=== PATIENT | female | born 2000 | race Caucasian/White ===

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

== ENCOUNTER 2020-04-12 12:25 | Emergency (ER) | payer OTHER, SELFPAY ==
[2020-04-12 13:12] VITALS: BP 138/87; PULSE 78; RESP 19; TEMP 37; O2SAT 98; BMI 37.0
--- NOTE | 2020-04-12 13:26 | HMH.EDUTC ---
[facility] [place] Disposition Clinical Impression: Encounter for laboratory testing for COVID-19 virus, Viral syndrome Disposition: Home, Self-Care Condition on Discharge: Good Instructions: DI for COVID-19 (Suspected or Confirmed ), COVID-19: Testing and Tracing, Preventing the Spread of Coronavirus Discharge Instructions, Nausea and Vomiting-Adult, Ondansetron Additional Instructions: ? Avoid fruit juices, as these do not replace minerals and can actually increase diarrhea. ? Children and adults can use sports drinks to replenish electrolytes. Younger children and infants should use products formulated for children, like oral rehydration solutions. ? Eat food in small amounts and let your stomach recover. ? Get lots of rest. You may feel tired or weak. ? No greasy or fried foods for the next 24-48 hours BRAT diet Bananas Rice Apples and [place] ? Make sure to drink plenty of liquids ? Return if needed ? Straight to ER if any life threatening symptoms ? Zofran as prescribed ? Follow up with family doctor in the next 48-72 hours if no improvement or any worsening of symptoms *Monitor Temp, Over the counter Motrin or Tylenol as directed/as needed Tylenol every 4 hours and Motrin every 6 hours (as long as your family doctor has told you that you can take it) for fever or pain. and straight to ER if unable to lower temp less than 101.0 after medication given *Warm salt water gargles may help to soothe the throat *Throat Lozenges *Warm fluids like tea with honey may help to soothe the throat *Sleep elevated *Humidifier/Vaporizer Follow up IMMEDIATELY for new or worsening symptoms or no Noticeable improvement over the next 48-72 hours. 911 for difficulty breathing or swallowing You were tested for today for COVID19 your test result should be back in the next 24-48 hours, you may call to the [facility] to see if your test results are back in the next 48 hours [phone] [facility] hours are 9am-9pm You was given a handout with instructions for Self Quarantine and Self isolation for while you wait on test results and what to do if they are positive If you are positive the Health Dept will be contacting you also Prescriptions: Ondansetron [Zofran 4mg ODT] 4 mg PO TIDP PRN #10 tab PRN Reason: Nausea Transmission Status: Pending to [id number] Referrals: Solitario Ly MD [Primary Care Provider] - As needed Forms: Work/School Release Time of Disposition: 13:33 Medical Decision Making - Chetan Inquiry Pt receiving controlled substance: No Chetan was queried for this patient: No Vital Signs: 04/12/20 13:12 Temperature 98.6 F Temperature Source Oral Pulse Rate [Right Brachial] 78 Respiratory Rate 19 Blood Pressure [Right Arm] 138/87 Blood Pressure Mean [Right Arm] 104 Blood Pressure Source [Right Arm] Automatic Cuff Blood Pressure Position [Right Arm] Sitting 02 Sat by Pulse Oximetry 98 Oxygen Delivery Method Room Air Orders (Tests/Meds): ORDERS Category Date Time Status Covid-19 Nasal PCR ([facility]) Routine Lab 04/12/20 12:54 Received [facility] [place] HPI - General Stated complaint: covid symtoms Time Seen by Provider: 04/12/20 13:26 Mode of Arrival: Ambulatory Source of Information: Patient Limitations: No Limitations Description of Symptoms (Recalled from Triage Doc. by RN): PATIENT C/O NO TASTE/SMELL, HEADACHE, FEVER, VOMITING, BODY ACHES, SWEATS, AND VOMITING X 2 DAYS HEENT Symptoms (Recalled from RN notes): No Resp Symptoms (Recalled from RN notes): No Skin Symptoms (Recalled from RN notes): No MS Symptoms (Recalled from RN notes): No Functional Status (Recalled from RN notes): WNL - History of Present Illness Provider Complaint: Patient state that she has not felt well for several days States that yesterday she loss her sense of taste and smell. States that she has been having body aches, chills and fever State that she also took the COVID vaccine yesterday States that she was having symptoms prior to the Vaccine and
[2020-04-12 13:35] VITALS: BP 138/87; PULSE 78; RESP 19; TEMP 37; O2SAT 98
--- NOTE | 2020-04-12 21:00 | PC.NURSE ---
PT NOTIFIED OF POSITIVE COVID RESULTS
== END 2020-04-12 13:40 | disposition home or self-care (01) ==
PROVIDERS: Emergency Provider Nurse Practitioner; PCP Family Medicine
DX: U07.1 COVID-19 (principal); F41.9 Anxiety disorder, unspecified
CPT/HCPCS: 99202; G0463; U0003

== ENCOUNTER → 2021-02-11 09:12 | Outpatient (CLI) | payer OTHER, SELFPAY ==
[2021-02-11 12:09] LABS: Coronavirus 19, PCR Not Detected (NotDetected); Influenza A, PCR Not Detected (NotDetected); Influenza B, PCR Not Detected (NotDetected)
== END ==
PROVIDERS: PCP Family Medicine; Visit Provider Internal Medicine Adolescent Medicine
DX: Z20.822 Contact with and (suspected) exposure to COVID-19 (principal)
CPT/HCPCS: C9803; U0003; U0005

== ENCOUNTER 2021-03-10 12:08 | Emergency (ER) | payer OTHER, SELFPAY ==
[2021-03-10 13:50] VITALS: BP 138/74; PULSE 94; RESP 20; TEMP 36.8; O2SAT 99; BMI 31.1
[2021-03-10 14:02] LABS: UTC Strep Screen (Rapid) Positive (Negative)
--- NOTE | 2021-03-10 14:21 | HMH.EDUTC ---
[facility] [place] Disposition Clinical Impression: Strep throat Disposition: Home, Self-Care Condition on Discharge: Good Instructions: Strep Throat, DI for Strep Throat Additional Instructions: Drink plenty of fluids. Take tylenol or ibuprofen for pain or fever. Take the medications as directed. Follow up with your regular doctor. GO TO THE ER FOR ANY WORSENING SYMPTOMS Throw your tooth brush away and get a new one. Prescriptions: Brompheniramine/Pseudoephed/Dm [Bromfed Dm Cough Syrup] 5 ml PO Q6HP PRN #240 ml PRN Reason: Cough Transmission Status: Received by [id number] Amoxicillin/Potassium Clav [Augmentin 500mg tab] 500 mg PO TID #30 tab Transmission Status: Received by [id number] Referrals: Solitario Ly MD [Primary Care Provider] - Forms: Work/School Release Time of Disposition: 14:31 Medical Decision Making - Medical Records Medical records reviewed: No: I reviewed the patient's medical records. - Chetan Inquiry Pt receiving controlled substance: No Vital Signs: 03/10/21 13:50 03/10/21 14:40 Temperature 98.3 F 98.3 F Temperature Source Oral Pulse Rate 94 H Pulse Rate [Left] 94 H Respiratory Rate 20 20 Blood Pressure 138/74 Blood Pressure [Right Arm] 138/74 Blood Pressure Mean [Right Arm] 95 02 Sat by Pulse Oximetry 99 - Lab Data Lab results reviewed: Yes: I reviewed the patient's lab results. Lab Results 03/10/21 13:55: Strep Scn Rapid Clinic Positive A [facility] [place] HPI - General Stated complaint: sore throat and headache Time Seen by Provider: 03/10/21 14:21 Mode of Arrival: Ambulatory Source of Information: Patient Limitations: No Limitations Description of Symptoms (Recalled from Triage Doc. by RN): pt c/o a sore throat, CHURCH, chills/sweats, and fever. ongoing since yesterday. HEENT Symptoms (Recalled from RN notes): Yes (sore throat and CHURCH) Resp Symptoms (Recalled from RN notes): No Skin Symptoms (Recalled from RN notes): No MS Symptoms (Recalled from RN notes): No Functional Status (Recalled from RN notes): wnl - History of Present Illness Provider Complaint: She states that she has had a sore throat, chilling and a dry cough for the past 2 days. She usually gets strep throat this time of the year and she feels like she has it now. - Related Data Previous Rx's Medication Instructions Recorded Amoxicillin/Potassium Clav 1 tab PO Q12H 10 Days #20 tab 05/13/19 [Augmentin 875-125 Tablet] predniSONE [Deltasone 10mg tablet] 10 mg PO BID 4 Days #8 tab 05/13/19 Ondansetron [Zofran 4mg ODT] 4 mg PO TIDP PRN #10 tab 04/12/20 Amoxicillin/Potassium Clav 500 mg PO TID #30 tab 03/10/21 [Augmentin 500mg tab] Brompheniramine/Pseudoephed/Dm 5 ml PO Q6HP PRN #240 ml 03/10/21 [Bromfed Dm Cough Syrup] Allergies Allergy/AdvReac Type Severity Reaction Status Date / Time lactose Allergy Verified 04/12/20 13:18 - Worker's Comp Is this a Worker's Comp case?: No [facility] History - Hepatitis A Screen Drug use history?: No High risk sexual behaviors?: No History of sexually transmitted infection?: No Currently employed?: No Childcare worker?: No Do you have indoor plumbing?: Yes Do you have electricity?: Yes Attestation statement:: This patient has been screened for Hepatitis A risk factors. I have reviewed the patient's past medical history: Yes Medical History: Reports:: Anxiety, MRSA Denies:: Cancer, Diabetes Mellitus Type 1, Diabetes Mellitus Type 2, Internal Pacemaker, Seizures Other Medical History: Reports: Sinus Problems. Denies: Blood Transfusion Reaction Other Surgeries: Yes: No Previous Surgery, Other. No: Pacemaker Amputation: No Fractures: Yes (ANKLE AND PINKY FINGER) Comment: skin lesion excision face - Social History Smoking Status: Never smoker Alcohol Intake: never Substance Use Type: denies use Occupational Status: other Housing: house Household Members: family - Psychiatric History [facility]
[2021-03-10 14:40] VITALS: BP 138/74; PULSE 94; RESP 20; TEMP 36.8
== END 2021-03-10 14:43 | disposition home or self-care (01) ==
PROVIDERS: Emergency Provider Nurse Practitioner Family; PCP Family Medicine
DX: J02.0 Streptococcal pharyngitis (principal); F41.9 Anxiety disorder, unspecified
CPT/HCPCS: 87880; 99202; G0463

== ENCOUNTER 2021-07-31 12:23 | Emergency (ER) | payer OTHER, SELFPAY ==
[2021-07-31 12:24] VITALS: BP 127/82; PULSE 94; RESP 20; TEMP 36.8; O2SAT 98; BMI 31.1
[2021-07-31 14:36] LABS: UTC Influenza A Antigen Negative (Negative)
[2021-07-31 14:37] LABS: UTC Influenza B Antigen Negative (Negative)
--- NOTE | 2021-07-31 14:43 | HMH.EDUTC ---
[facility] [place] Clinical Impression: Viral upper respiratory infection Disposition: Home, Self-Care Condition on Discharge: Good Instructions: DI for Fever (Symptom) -- Adult, Influenza, DI for Viral Upper Respiratory Infection -- Adult Additional Instructions: *Monitor Temp, Over the counter Motrin or Tylenol as directed/as needed Tylenol every 4 hours and Motrin every 6 hours (as long as your family doctor has told you that you can take it) for fever or pain. and straight to ER if unable to lower temp less than 101.0 after medication given *Warm salt water gargles may help to soothe the throat *Throat Lozenges *Warm fluids like tea with honey may help to soothe the throat *Sleep elevated *Humidifier/Vaporizer Your throat swab was sent for culture. Those results are typically sent to your primary care. Be sure to follow up in 2-3 days with your family doctor/primary care physician if no improvement so they can review those result and treat if necessary. If you don?t have a primary care doctor, I recommend you get one but in the mean time, you will have to return to a walk in clinic Follow up IMMEDIATELY for new or worsening symptoms or no Noticeable improvement over the next 48-72 hours. 911 for difficulty breathing or swallowing Referrals: Solitario Ly MD [Primary Care Provider] - As needed Forms: Work/School Release Time of Disposition: 15:15 Medical Decision Making - Chetan Inquiry Pt receiving controlled substance: No Chetan was queried for this patient: No Vital Signs: 07/31/21 12:24 Temperature 98.3 F Temperature Source Oral Pulse Rate [Right Radial] 94 H Respiratory Rate 20 Blood Pressure [Right Arm] 127/82 Blood Pressure Mean [Right Arm] 97 Blood Pressure Source [Right Arm] Automatic Cuff Blood Pressure Position [Right Arm] Sitting 02 Sat by Pulse Oximetry 98 Oxygen Delivery Method Room Air - Lab Data Lab results reviewed: Yes: I reviewed the patient's lab results. Lab Results 07/31/21 14:11: Group A Strep Rapid Negative 07/31/21 14:12: Influenza Type A Ag Negative, Influenza Type B Ag Negative Orders (Tests/Meds): ORDERS Category Date Time Status Strep Screen Confirmation Stat Micro 07/31/21 14:11 Received [facility] [place] - General Stated complaint: lightheaded, weakness, fever Time Seen by Provider: 07/31/21 14:45 Mode of Arrival: Ambulatory Source of Information: Patient, Parent(s) Limitations: No Limitations Description of Symptoms (Recalled from Triage Doc. by RN): Pt stated that last night she had a fever 102, shaky and weak, runny nose, and feels dehydrated. HEENT Symptoms (Recalled from RN notes): Yes Resp Symptoms (Recalled from RN notes): No Skin Symptoms (Recalled from RN notes): No MS Symptoms (Recalled from RN notes): No Functional Status (Recalled from RN notes): n/a - History of Present Illness Provider Complaint: Patient states that she woke up in the middle of the night with fever of 102.0 State that she was sweating and felt thirsty States that she got up took some medication and drink some water and laid back down States that she got up earlier and was still feeling feverish and achy all over and felt like she may have the flu so she called into work and came in to get tested - Related Data Allergies Allergy/AdvReac Type Severity Reaction Status Date / Time lactose Allergy Verified 07/31/21 14:17 - Worker's Comp Is this a Worker's Comp case?: No [facility] History - Hepatitis A Screen Drug use history?: No High risk sexual behaviors?: No History of sexually transmitted infection?: No Currently employed?: No Childcare worker?: No Do you have indoor plumbing?: Yes Do you have electricity?: Yes Attestation statement:: This patient has been screened for Hepatitis A risk factors. I have reviewed the patient's past medical history: Yes Medical History: Reports:: Anxiety, MRSA Denies:: Cancer, Diabetes Mellitus Type 1, Diabetes Mellitus Type 2
[2021-07-31 15:10] LABS: Strep Scrn Group A (Rapid) Negative (Negative)
[2021-07-31 15:27] VITALS: BP 127/82; PULSE 94; RESP 20; TEMP 36.8; O2SAT 98
[2021-07-31 15:34] LABS: Adenovirus,PCR Not Detected (NotDetected); Bordetella Pertussis Not Detected (NotDetected); Chlamydophila Pneumoniae, PCR Not Detected (NotDetected); Coronavirus 19, PCR Not Detected (NotDetected); Coronavirus 229E Not Detected (NotDetected); Coronavirus NL63 Not Detected (NotDetected); Coronavirus OC43 Not Detected (NotDetected); Coronovirus HKU1,PCR Not Detected (NotDetected); Human Metapneumovirus Not Detected (NotDetected); Influenza A, PCR Not Detected (NotDetected); Influenza AH1, 2009 Not Detected (NotDetected); Influenza AH1, PCR Not Detected (NotDetected); Influenza AH3,PCR Not Detected (NotDetected); Influenza B, PCR Not Detected (NotDetected); Mycoplasma Pneumoniae, PCR Not Detected (NotDetected); Parainfluenza 1, PCR Not Detected (NotDetected); Parainfluenza 2, PCR Not Detected (NotDetected); Parainfluenza 3, PCR Not Detected (NotDetected); Parainfluenza 4, PCR Not Detected (NotDetected); Respiratory Syncytial Virus Not Detected (NotDetected)
[2021-07-31 19:45] LABS: Rhinovirus/Enterovirus Detected (NotDetected)
== END 2021-07-31 15:27 | disposition home or self-care (01) ==
PROVIDERS: Emergency Provider Nurse Practitioner; PCP Family Medicine
DX: J06.9 Acute upper respiratory infection, unspecified (principal); F41.9 Anxiety disorder, unspecified
CPT/HCPCS: 87430; 87581; 87632; 87798; 87804; 99213; C9803; G0463; U0003; U0005

== ENCOUNTER 2021-10-06 16:56 | Emergency (ER) | payer OTHER, SELFPAY ==
[2021-10-06 17:05] VITALS: BP 114/81; PULSE 66; RESP 17; TEMP 36.8; O2SAT 96; BMI 29.2
--- NOTE | 2021-10-06 17:29 | HMH.EDUTC ---
[facility] [place] Clinical Impression: UTI (urinary tract infection) Qualifiers: Urinary tract infection type: site unspecified Hematuria presence: with hematuria Qualified Code(s): N39.0 - Urinary tract infection, site not specified Disposition: Home, Self-Care Condition on Discharge: Good Instructions: Urinary Tract Infection, Urine Culture, DI for Urinary Tract Infection (UTI), Phenazopyridine Additional Instructions: Drink plenty of fluids. Take tylenol or ibuprofen for pain or fever. Take the medications as directed. Follow up with your regular doctor. GO TO THE ER FOR ANY WORSENING SYMPTOMS The pyridium will make your urine turn orange, this is an expected side effect. It will stain your clothes if it comes into contact with them. We will culture the urine. That will tell what bacteria is causing your infection and which antibiotics will treat it best. Sometimes the first antibiotic we prescribe turns out to not work against different bacteria. So, make sure you follow up within 3 days if you are not getting better. Prescriptions: Ondansetron [Zofran 4mg ODT] 4 mg PO Q8HP PRN #12 tab PRN Reason: Nausea Transmission Status: Received by [id number] Sulfamethoxazole/Trimethoprim [Bactrim DS tablet] 1 each PO BID 7 Days #14 tab Transmission Status: Received by [id number] Phenazopyridine HCl [Pyridium 200mg Tablet] 200 pow PO TID #6 tab Transmission Status: Received by [id number] Referrals: Solitario Ly MD [Primary Care Provider] - Time of Disposition: 17:40 Medical Decision Making - Medical Records Medical records reviewed: No: I reviewed the patient's medical records. - Chetan Inquiry Pt receiving controlled substance: No Vital Signs: 10/06/21 17:05 10/06/21 17:43 Temperature 98.3 F 98.3 F Temperature Source Oral Pulse Rate 66 Pulse Rate [Left] 66 Respiratory Rate 17 17 Blood Pressure 114/81 Blood Pressure [Right Arm] 114/81 Blood Pressure Mean [Right Arm] 92 02 Sat by Pulse Oximetry 96 - Lab Data Lab results reviewed: Yes: I reviewed the patient's lab results. Lab Results 10/06/21 17:57: Urine Color Heidi, Urine Appearance Clear, Urine pH 5.0, Ur Specific [place] 1.020, Urine Protein 3+, Urine Glucose (UA) Trace, Urine Ketones Small, Urine Blood 3+, Urine Nitrate Positive A, Urine Bilirubin 2+ A, Urine Urobilinogen >=8, Ur Leukocyte Esterase 3+ A Orders (Tests/Meds): ORDERS Category Date Time Status Urine Culture Stat Micro 10/06/21 17:49 Results [facility] [place]PI - General Stated complaint: Possible UTI Time Seen by Provider: 10/06/21 17:29 Description of Symptoms (Recalled from Triage Doc. by RN): patient comes in for uti symptoms. patient complains of burning, and pain with urination HEENT Symptoms (Recalled from RN notes): No Resp Symptoms (Recalled from RN notes): No Skin Symptoms (Recalled from RN notes): No MS Symptoms (Recalled from RN notes): No Functional Status (Recalled from RN notes): wnl - History of Present Illness Provider Complaint: She states that for the past 2 days she has dysuria, low back pain, suprapubic discomfort and n/d. She gets UTIs kind of frequently and that is what she says she has now. - Related Data Previous Rx's Medication Instructions Recorded Ondansetron [Zofran 4mg ODT] 4 mg PO Q8HP PRN #12 tab 10/06/21 Phenazopyridine HCl [Pyridium 200 pow PO TID #6 tab 10/06/21 200mg Tablet] Sulfamethoxazole/Trimethoprim 1 each PO BID 7 Days #14 tab 10/06/21 [Bactrim DS tablet] Allergies Allergy/AdvReac Type Severity Reaction Status Date / Time lactose Allergy Verified 07/31/21 14:17 - Worker's Comp Is this a Worker's Comp case?: No [facility] History - Hepatitis A Screen Attestation statement:: This patient has been screened for Hepatitis A risk factors. I have reviewed the patient's past medical history: Yes Medical History: Reports:: Marquez Noel
[2021-10-06 17:43] VITALS: BP 114/81; PULSE 66; RESP 17; TEMP 36.8
[2021-10-06 18:00] LABS: Apearance,Urine Clear (Clear); Color,Urine Amber (Yellow); Protein,Urine 3+ (Negative)
[2021-10-06 18:01] LABS: Bilirubin,Urine 2+ (Negative); Blood, Urine 3+ (Negative); Glucose,Urine (UA) Trace (Negative); Ketones,Urine SMALL (Negative); UTC Leukocyte Esterase,Urine 3+ (Negative); UTC Nitrate,Urine Positive (Negative); Urobilinogen,Urine >=8 EU/dl (0.2)
== END 2021-10-06 17:47 | disposition home or self-care (01) ==
PROVIDERS: Emergency Provider Nurse Practitioner Family; PCP Family Medicine
DX: N39.0 Urinary tract infection, site not specified (principal); R31.9 Hematuria, unspecified
CPT/HCPCS: 81003; 87086; 99212; G0463

== ENCOUNTER 2021-10-24 13:12 | Emergency (ER) | payer OTHER, SELFPAY ==
[2021-10-24] VITALS (10 sets, daily range): BP systolic 106–128; BP diastolic 58–90; PULSE 52–94; RESP 15–18; TEMP 37.2; O2SAT 97–99; BMI 28.3
--- NOTE | 2021-10-24 13:13 | ECG_ITS ---
APPROVED REPORT Exam: Resting ECG HR:102 bpm ECG Measurements Heart Rate 102 AXES [place] 144 P 24 QRSd 85 QRS 46 QT 335 T 28 QTc 394 Conclusion SINUS TACHYCARDIA ABNORMAL RHYTHM ECG UNCONFIRMED REPORT Electronically signed by : Asad Hodgson MD 10/25/2021 21:02:34
--- NOTE | 2021-10-24 13:30 | XR_ITS ---
FINAL REPORT CLINICAL HISTORY: CHEST PAIN COMPARISON: 08/01/2017 FINDINGS: Two views of the chest were obtained. The heart size and pulmonary vascularity are within normal limits. The mediastinum is normal. No acute pulmonary abnormality is identified. There is no pneumothorax. The bony thorax is intact. IMPRESSION: No active cardiopulmonary disease. Reviewed, Interpreted and Dictated by Lavon Kevin III, MD Transcribed by Dax Velazquez Authenticated and . [facility]
[2021-10-24 13:37] LABS: Basophils # 0.1 K/mm3 (0-0.2); Basophils % 0.7 % (0.1-2.0); Eosinophils # 0.2 K/mm3 (0.0-0.4); Eosinophils % 1.7 % (0.1-12.0); Hematocrit 43.9 % (37.0-47.0); Hemoglobin 14.9 g/dL (12.2-16.2); Lymphocytes # 3.6 K/mm3 (0.7-4.5); Lymphocytes % 37.5 % (10-50); Mean Corpuscular HGB Conc 33.9 g/dL (31.8-35.4); Mean Corpuscular Volume 85.4 fl (81-99); Mean Platelet Volume 8.1 fl (7.4-10.4); Monocytes # 0.5 K/mm3 (0.1-1.0); Monocytes % 5.5 % (1.7-9.3); Neutrophils # 5.3 K/mm3 (1.8-7.8); Neutrophils % 54.5 % (37.0-80.0); Platelet Count 364 K/mm3 (142-424); Red Blood Count 5.14 M/mm3 (4.20-5.40); Red Cell Distribution Width 12.3 % (11.5-17.5); White Blood Count 9.7 K/mm3 (4.8-10.8)
[2021-10-24 13:40] LABS: Chloride 104 mmol/L (98-107); Potassium 3.9 mmoL/L (3.5-5.1); Sodium 138 mmol/L (136-145)
[2021-10-24 13:43] LABS: Anion Gap 13.9 mEq/L (5-15); Blood Urea Nitrogen 11 mg/dl (7-17); Carbon Dioxide 24 mmol/L (22.0-30.0); Creatinine Clearance Estimated 135 mL/min (50-200); Estimated Glomerular Filt Rate 91 ml/min (>60); GFR (African American) 110 ML/MIN (>60)
[2021-10-24 13:44] LABS: Calcium 9.5 mg/dl (8.4-10.2); Glucose 101 mg/dl (74-100)
[2021-10-24 13:56] LABS: Troponin I < 0.01 ng/ml (0.00-0.034)
--- NOTE | 2021-10-24 14:21 | PC.NURSE ---
Rounded on patient at this time. Updated her that we were still waiting on some of her results to come back. Family member at bedside. Pt resting in bed with blankets and had no other needs at this time.
--- NOTE | 2021-10-24 14:26 | HMH.EDGENADL ---
ED Disposition Clinical Impression: Gastroenteritis, Atypical chest pain Disposition: Home, Self-Care Condition on Discharge: Good Instructions: DI for Atypical Chest Pain, DI for Viral Gastroenteritis -- Adult Additional Instructions: Zofran as needed for vomiting and nausea. [id number] Imodium as needed for diarrhea. Mtnz-xre-ruaikii Tylenol or ibuprofen for pain. Additional instructions for CHEST PAIN: See your physician as soon as possible for further evaluation. Return immediately if worsening chest pain, vomiting, shortness of breath, fever, coughing of blood. Additional instructions for VOMITING/DIARRHEA: See your physician as soon as possible for further evaluation. Drink plenty of fluids. Return immediately if severe abdominal pain, uncontrollable vomiting, shortness of breath, fever, bloody diarrhea, vomiting of blood or abdominal distention. Prescriptions: Ondansetron [Zofran 4mg ODT] 4 mg PO TIDP PRN #10 tab PRN Reason: Nausea And Vomiting Transmission Status: Pending to [id number] Referrals: Solitario Ly MD [Primary Care Provider] - - Critical Care Critical Care Time: No Attestation: On 10/24/21, the high probability of a clinically significant, sudden or life threatening deterioration of the following system(s) required my full and direct attention, intervention and personal management. The time I documented below is in addition to time spent performing reported procedures but includes the following listed in this critical care notation. Medical Decision Making - Chetan Inquiry Pt receiving controlled substance: No Vital Signs: 10/24/21 13:20 10/24/21 13:30 10/24/21 14:15 Temperature 99.0 F Temperature Source Oral Pulse Rate 88 77 Pulse Rate [Left Radial] 94 H Respiratory Rate 18 15 18 Blood Pressure 125/77 Blood Pressure [Right Arm] 119/82 Blood Pressure Mean 83 Blood Pressure Mean [Right Arm] 94 Blood Pressure Source [Right Arm] Automatic Cuff Blood Pressure Position [Right Arm] Sitting 02 Sat by Pulse Oximetry 97 99 98 Oxygen Delivery Method Room Air Room Air 10/24/21 14:31 10/24/21 15:00 10/24/21 15:30 Temperature Temperature Source Pulse Rate 88 62 66 Pulse Rate [Left Radial] Respiratory Rate 18 Blood Pressure 128/90 119/71 106/58 L Blood Pressure [Right Arm] Blood Pressure Mean 98 87 74 Blood Pressure Mean [Right Arm] Blood Pressure Source [Right Arm] Blood Pressure Position [Right Arm] 02 Sat by Pulse Oximetry 98 98 99 Oxygen Delivery Method Room Air 10/24/21 16:00 Temperature Temperature Source Pulse Rate 57 L Pulse Rate [Left Radial] Respiratory Rate 18 Blood Pressure 119/80 Blood Pressure [Right Arm] Blood Pressure Mean 93 Blood Pressure Mean [Right Arm] Blood Pressure Source [Right Arm] Blood Pressure Position [Right Arm] 02 Sat by Pulse Oximetry 98 Oxygen Delivery Method - Lab Data Lab Results 10/24/21 13:25: WBC 9.7, RBC 5.14, Hgb 14.9, Hct 43.9, MCV 85.4, MCH 29.0, MCHC 33.9, RDW 12.3, Plt Count 364, MPV 8.1, Neut % (Auto) 54.5, Lymph % (Auto) 37.5, Rankin % (Auto) 5.5, Eos % (Auto) 1.7, Baso % (Auto) 0.7, Neut # (Auto) 5.3, Lymph # (Auto) 3.6, Rankin # (Auto) 0.5, Eos # (Auto) 0.2, Baso # (Auto) 0.1 10/24/21 13:25: Sodium 138, Potassium 3.9, Chloride 104, Carbon Dioxide 24, Anion Gap 13.9, BUN 11, Creatinine 0.80, Estimated Creat Clear 135, Estimated GFR 91, Est GFR ( Amer) 110, Glucose 101 H, Calcium 9.5, Troponin I < 0.01 10/24/21 13:25: D-Dimer 0.57 H 10/24/21 13:25: Total Bilirubin 0.3, Direct Bilirubin 0.0, Conjugated Bilirubin 0.0, Indirect Bilirubin 0.3, Unconjugated Bilirubin 0.5, AST 28, ALT 21, Alkaline Phosphatase 76, Total Protein 8.2, Albumin 4.6, Lipase 66 10/24/21 13:25: Serum HCG, Qual Negative 10/24/21 14:40: SARS-CoV-2 (PCR) Not detected, Influenza A Untype (PCR) Not detected, Influenza Type B (PCR) Not detected Result diagrams: 10/24
--- NOTE | 2021-10-24 14:41 | PC.NURSE ---
Rounded on patient; she would like ice chips. I checked with ER MD and he states that is fine. Patient was given ice chips at this time. Mother at and reports she doesnt need anything. Awaiting lab and imaging results
--- NOTE | 2021-10-24 15:02 | PC.NURSE ---
Called lab to notify them of lab add-ons; spoke with Morena and she reports she is reciving them at this time
[2021-10-24 15:10] LABS: Coronavirus 19, PCR Not Detected (NotDetected); Influenza A, PCR Not Detected (NotDetected); Influenza B, PCR Not Detected (NotDetected)
[2021-10-24 15:20] LABS: Alanine Aminotransferase 21 U/L (12-78); Albumin Level 4.6 g/dl (3.5-5.0); Alkaline Phosphatase 76 U/L (38-126); Aspartate Amino Transferase 28 U/L (14-36); Bilirubin,Indirect 0.3 mg/dL (0.0-0.9); Bilirubin,Total 0.3 mg/dl (0.2-1.3); Bilirubin,Unconjugated 0.5 mg/dL (0.0-1.1); Lipase 66 U/L (23-300); Total Protein,Serum 8.2 g/dl (6.3-8.2)
[2021-10-24 15:27] LABS: D-Dimer 0.57 ug/mL (0.0-0.5)
--- NOTE | 2021-10-24 16:39 | CT_ITS ---
PROCEDURE INFORMATION: Exam: CTA Chest With Contrast Exam date and time: 10/24/2021 5:11 PM Age: 21 years old Clinical indication: Sternal or substernal pain; Additional info: Pleuritic cp, elev d-dimer TECHNIQUE: Imaging protocol: Computed tomographic angiography of the chest with contrast. 3D rendering (Not supervised by radiologist): MIP and/or 3D reconstructed images were created by the technologist. Radiation optimization: All CT scans at this facility use at least one of these dose optimization techniques: automated exposure control; mA and/or kV adjustment per patient size (includes targeted exams where dose is matched to clinical indication); or iterative reconstruction. Contrast material: ISOVUE 370; Contrast volume: 70 ml; Contrast route: INTRAVENOUS (IV); COMPARISON: CR XR CHEST 2V 10/24/2021 1:49 PM FINDINGS: Pulmonary arteries: No visualized pulmonary embolus. The subsegmental pulmonary arteries are subobtimally demonstrated, and cannot be completely cleared. Aorta: Unremarkable. No aortic aneurysm. No aortic dissection. Lungs: See Pleural spaces finding. Pleural spaces: No lobar consolidation, pleural effusion or pulmonary edema. Heart: No significant coronary artery calcifications. Lymph nodes: Unremarkable. No enlarged lymph nodes. Liver: Mildly fatty liver. Bones/joints: Unremarkable. No acute fracture. Soft tissues: Unremarkable. Other findings: No dissection or aneurysm. Old granulomatous disease. IMPRESSION: 1. No visualized pulmonary embolus. The subsegmental pulmonary arteries are subobtimally demonstrated, and cannot be completely cleared. 2. No lobar consolidation, pleural effusion or pulmonary edema.
--- NOTE | 2021-10-24 16:45 | PC.NURSE ---
ER MD at giving patient update on imaging and lab results; ER MD at put in another imaging scan; waiting fo rher to go to radiology. Pt has no needs at this time; Mother at and she also has no needs.
--- NOTE | 2021-10-24 16:53 | PC.NURSE ---
V/O TO CANCEL REPEAT TROP FROM DR. STAHL
[2021-10-24 16:58] LABS: HCG Qualitative, Serum Negative (Negative)
--- NOTE | 2021-10-24 17:21 | PC.NURSE ---
PT IN RADIOLOGY
== END 2021-10-24 18:22 | disposition home or self-care (01) ==
PROVIDERS: Emergency Provider Emergency Medicine; PCP Family Medicine
DX: K52.9 Noninfective gastroenteritis and colitis, unspecified (principal); R07.89 Other chest pain; Z86.14 Personal history of Methicillin resistant Staphylococcus aureus infection; F41.9 Anxiety disorder, unspecified
CPT/HCPCS: 71046; 71275; 80048; 80076; 83690; 84484; 84703; 85025; 85378; 93005; 96374; 96375; 99284; C9803; J2405; Q9967; U0003; U0005

== ENCOUNTER → 2021-10-27 10:46 | Outpatient (CLI) | payer OTHER, SELFPAY ==
--- NOTE | 2021-10-27 10:52 | CT_ITS ---
FINAL REPORT CLINICAL HISTORY: INTRACTABLE VOMITING WITH NAUSEA FINDINGS: Axial CT images of the abdomen and pelvis were obtained without intravenous contrast. Coronal reformatted images were also obtained.This study was performed with techniques to keep radiation doses as low as reasonably achievable (ALARA). Individualized dose reduction techniques using automated exposure control or adjustment of mA and/or kV according to the patient's size were employed. Abdomen: There is a calcified granuloma in the right lung base. There is no evidence of renal stone or hydronephrosis.The liver, spleen and pancreas have an unremarkable, unenhanced appearance. No mass or adenopathy is seen. No inflammatory process is identified. Pelvis: The appendix is normal. Images of the pelvis reveal no evidence of ureteral dilation or ureteral stone.No mass or abnormal fluid collection is identified. IMPRESSION: No acute intra-abdominal or intrapelvic abnormality. Reviewed, Interpreted and Dictated by Lavon Kevin III, MD Transcribed by Purvi Berger Authenticated and [facility]
== END ==
PROVIDERS: PCP Physician Assistant; Visit Provider Family Medicine
DX: R11.2 Nausea with vomiting, unspecified (principal); R19.7 Diarrhea, unspecified
CPT/HCPCS: 74176

== ENCOUNTER → 2022-06-15 16:13 | Outpatient (CLI) | payer OTHER, SELFPAY | PROVIDERS: PCP Physician Assistant; Visit Provider Physician Assistant | DX: R00.2 Palpitations (principal) | CPT/HCPCS: 93225; 93226 ==

== ENCOUNTER 2022-10-02 18:19 | Emergency (ER) | payer OTHER, SELFPAY ==
[2022-10-02 18:26] VITALS: BP 135/82; PULSE 83; RESP 18; TEMP 36.7; O2SAT 98; BMI 27.4
--- NOTE | 2022-10-02 18:29 | HMH.EDGENADL ---
Discharge Plan Disposition Patient Disposition: Home, Self-Care Condition: Fair Referrals Follow up/Referrals: Solitario Ly MD [Primary Care Provider] - See instructions Clinical Impressions Clinical Impression: De Quervain's syndrome (tenosynovitis) Instructions Patient Instructions: DI for De Quervain's Tenosynovitis Print Language Print Language: Bel[place]an Discharge ED Provider: Eleazar Neal Adult HPI General Chief complaint: PAIN Stated complaint: left wrist pain,swelling,feels warm,17 weeks pregn Time Seen by Provider: 10/02/22 18:29 Mode of Arrival: Ambulatory Source of Information: Patient Limitations: No Limitations Description of Symptoms (Recalled from ER Triage Doc. by RN): Patient reports left forearm pain 2-3 days. Patient reports an achey pain that comes and goes and redness. Pt reports she is 17 weeks . History of Present Illness HPI narrative: Patient presents to the emergency department with left wrist pain over the past 3 days. Patient reports the pain is worse with movement. Onset (ago): day(s) (3) Location: left and upper extremity Severity: mild Quality: dull Exacerbating factors: movement Associated symptoms: other (abdominal pain) Related Data Allergies Allergy/AdvReac Type Severity Reaction Status Date / Time lactose Allergy Verified 10/02/22 18:29 [facility] Disclaimer: The information contained in this section may have been updated after the patient was seen, as this information can be updated by other users. Social History Smoking Status: Never smoker alcohol intake: never substance use type: denies use current occupational status: other Travel in the last 8 weeks: None household members: family housing: house current occupational exposures/hazards: No caffeine: Yes ROS Obtained: Yes Systems reviewed as appropriate & no additional complaints except as documented Musculoskeletal Musculoskeletal: Reports arthralgias and Reports joint swelling Physical Exam General General appearance: alert and in no apparent distress Eye Eye exam: Present normal appearance and EOMI ENT ENT exam: Present normal external ear exam Respiratory Respiratory exam: Absent respiratory distress Cardiovascular Cardiovascular exam: Present other Extremities Exam Extremities exam: Present tenderness Neurological Exam Neurological exam: Present alert; Absent motor sensory deficit Psychiatric Psychiatric exam: Present normal affect and normal mood Skin Skin exam: Present warm and dry Medical Decision Making Chetan Inquiry Pt receiving controlled substance: No Vital Signs: 10/02/22 18:26 Temperature 98.1 F Temperature Source Oral Pulse Rate [Right Brachial] 83 Respiratory Rate 18 Blood Pressure [Right Arm] 135/82 Blood Pressure Mean [Right Arm] 99 Blood Pressure Source [Right Arm] Automatic Cuff Blood Pressure Position [Right Arm] Sitting 02 Sat by Pulse Oximetry 98 Oxygen Delivery Method Room Air Critical Care Time Critical Care Time Critical Care Time: No Attestation: On 10/02/22, the high probability of a clinically significant, sudden or life threatening deterioration of the following system(s) required my full and direct attention, intervention and personal management. The time I documented below is in addition to time spent performing reported procedures but includes the following listed in this critical care notation.
[2022-10-02 18:45] VITALS: BP 135/82; PULSE 83; RESP 18; TEMP 36.7; O2SAT 98
== END 2022-10-02 18:49 | disposition home or self-care (01) ==
PROVIDERS: Emergency Provider Emergency Medicine; PCP Family Medicine
DX: O26.892 Other specified pregnancy related conditions, second trimester (principal); M65.4 Radial styloid tenosynovitis [de Quervain]; Z3A.17 17 weeks gestation of pregnancy
CPT/HCPCS: 99282; 99283

== ENCOUNTER 2022-10-07 19:49 | Emergency (ER) | payer OTHER, SELFPAY ==
[2022-10-07 19:53] VITALS: BP 151/95; PULSE 104; RESP 22; TEMP 37.1; O2SAT 98; BMI 32.1
--- NOTE | 2022-10-07 19:59 | HMH.EDCP ---
Discharge Plan Disposition Patient Disposition: Home, Self-Care Chief Complaint: Chest Pain Prescriptions Prescriptions: No Action ondansetron 8 mg tablet,disintegrating 8 mg PO TIDP PRN (Reason: Nausea And Vomiting) Patient Comments: DISSOLVE 1 TABLET IN MOUTH EVERY 8 HOURS NEEDED FOR NAUSEA FOR VOMITING Multi-DHA(with vit K) 27 mg iron-800 mcg-260 mg capsule 1 cap PO DAILY Referrals Follow up/Referrals: Provider,Referral, MD [Referring] - See instructions Clinical Impressions Clinical Impression: Abdominal pain affecting , UTI (urinary tract infection), , Atypical chest pain Instructions Patient Instructions: DI for Abdominal Pain -- Early Discharge ED Provider: Conner (ED)Kun Chest Pain HPI General Chief Complaint: Chest Pain Stated Complaint: CP Time Seen by Provider: 10/07/22 20:00 Mode of Arrival: Ambulatory Source of Information: Patient and Medical Record Limitations: No Limitations History of Present Illness HPI narrative: onset of lower abd pain today at noon - bilat lower pain with no vag bleeding - 19 weeks - no fever or vomiting and no diarrhea - no change in appetite MD complaint: chest pain Onset (ago): hour(s) Activity at onset: other (assoc with abd pain) Pain location: left chest Severity: mild Context: other ( ) Risk Factors for CAD: Family Hx of CAD Treatments prior to or on arrival for Cardiac Chest Pain: none RODRIGO Score for Non-Stemi Age of Patient: <30 years old Heart Rate: 90-109 bpm Systolic Blood Pressure: 120-139 mmhg Serum Creatinine: 0.40-0.79 mg/dl CHF Killip Class: I-No CHF Other Risk Factors: None Non-Stemi Risk Score: 53 Risk Stratification: 1-108 = Low Risk Related Data On Oral Contraceptives: No Home Medications Medication Instructions Recorded Confirmed PNV no.151-iron 27 mg-folic 800 1 cap PO DAILY 10/07/22 10/07/22 mcg-omega3 260 as-wib-wxw-fish capsule ( Multi-DHA (with vitamin K)) ondansetron 8 mg disintegrating 8 mg PO TIDP PRN Nausea And 10/07/22 10/07/22 tablet Vomiting Allergies Allergy/AdvReac Type Severity Reaction Status Date / Time lactose Allergy Verified 10/02/22 18:29 [facility] Disclaimer: The information contained in this section may have been updated after the patient was seen, as this information can be updated by other users. Social History Smoking Status: Never smoker alcohol intake: never substance use type: denies use current occupational status: other Travel in the last 8 weeks: None household members: family housing: house current occupational exposures/hazards: No caffeine: Yes ROS Obtained: Yes All systems reviewed & no additional complaints except as documented Physical Exam General General appearance: alert Head Head exam: normocephalic Eye Eye exam: Present PERRL and EOMI ENT ENT exam: Present mucous membranes moist Neck Neck exam: Present trachea midline Respiratory Respiratory exam: Present normal lung sounds bilaterally; Absent respiratory distress Cardiovascular Cardiovascular exam: Present regular rate; Absent systolic murmur, rubs, gallop or clicks Abdominal Exam Abdominal exam: Present soft, tenderness and other (gravid ); Absent guarding, rebound, rigidity, Macedo's sign or tenderness at McBurney's Point Comment: bilat lower abd Extremities Exam Extremities exam: Present full ROM; Absent calf tenderness Back Exam Back exam: Absent CVA tenderness (R) or CVA tenderness (L) Neurological Exam Neurological exam: Present alert, oriented X3 and CN II-XII intact; Absent motor sensory deficit Psychiatric Psychiatric exam: Present normal affect Skin Skin exam: Absent rash Medical Decision Making Medical Records Medical records reviewed: Yes I reviewed the patient's medical records. Chetan Inquiry Pt receiving controlled substance: No
--- NOTE | 2022-10-07 20:01 | XR_ITS ---
PROCEDURE INFORMATION: Exam: XR Chest Exam date and time: 10/07/2022 8:06 PM Age: 22 years old Clinical indication: Shortness of breath; Additional info: Shortness of air TECHNIQUE: Imaging protocol: Radiologic exam of the chest. Views: 1 view. COMPARISON: CR XR CHEST 2V 10/24/2021 1:49 PM FINDINGS: Lungs: Unremarkable. No consolidation. Pleural spaces: Unremarkable. No pleural effusion. No pneumothorax. Heart/Mediastinum: Unremarkable. No cardiomegaly. Bones/joints: Unremarkable. IMPRESSION: No acute findings.
--- NOTE | 2022-10-07 20:02 | PC.NURSE ---
verbal orders received from
--- NOTE | 2022-10-07 20:03 | ECG_ITS ---
APPROVED REPORT Exam: Resting ECG HR:106 bpm ECG Measurements Heart Rate 106 AXES TN 149 P 28 QRSd 86 QRS 79 QT 339 T -14 QTc 401 Conclusion SINUS TACHYCARDIA ABNORMAL QRS-T ANGLE [QRS-T AXIS DIFFERENCE > 60] ABNORMAL ECG UNCONFIRMED REPORT Electronically signed by : Asad Hodgson MD 10/08/2022 08:15:50
[2022-10-07 20:10] LABS: Basophils # 0.1 K/mm3 (0-0.2); Basophils % 0.4 % (0.1-2.0); Eosinophils # 0.2 K/mm3 (0.0-0.4); Eosinophils % 1.4 % (0.1-12.0); Hematocrit 37.7 % (37.0-47.0); Hemoglobin 11.9 g/dL (12.2-16.2); Lymphocytes # 3.6 K/mm3 (0.7-4.5); Lymphocytes % 27.3 % (10-50); Mean Corpuscular HGB Conc 31.6 g/dL (31.8-35.4); Mean Corpuscular Hemoglobin 28.2 pg (27.0-31.2); Mean Corpuscular Volume 89.4 fl (81-99); Mean Platelet Volume 9.1 fl (7.4-10.4); Monocytes # 0.6 K/mm3 (0.1-1.0); Monocytes % 4.9 % (1.7-9.3); Neutrophils # 8.7 K/mm3 (1.8-7.8); Platelet Count 292 K/mm3 (142-424); Red Blood Count 4.22 M/mm3 (4.20-5.40); Red Cell Distribution Width 13.3 % (11.5-17.5); White Blood Count 13.1 K/mm3 (4.8-10.8)
[2022-10-07 20:15] LABS: Alanine Aminotransferase 26 U/L (12-78); Albumin Level 4.2 g/dl (3.5-5.0); Alkaline Phosphatase 79 U/L (38-126); Amylase 82 U/L (30-110); Anion Gap 17.4 mEq/L (5-15); Aspartate Amino Transferase 30 U/L (14-36); Bilirubin,Indirect 0.2 mg/dL (0.0-0.9); Bilirubin,Total 0.2 mg/dl (0.2-1.3); Bilirubin,Unconjugated 0.3 mg/dL (0.0-1.1); Blood Urea Nitrogen 8 mg/dl (7-17); Calcium 8.6 mg/dl (8.4-10.2); Carbon Dioxide 22 mmol/L (22.0-30.0); Chloride 101 mmol/L (98-107); Creatinine Clearance Estimated 236 mL/min (50-200); Estimated Glomerular Filt Rate 154 ml/min (>60); GFR (African American) 187 ML/MIN (>60); Glucose 87 mg/dl (74-100); Lipase 87 U/L (23-300); Potassium 3.4 mmoL/L (3.5-5.1); Sodium 137 mmol/L (136-145); Total Protein,Serum 7.8 g/dl (6.3-8.2)
[2022-10-07 20:19] LABS: Creatine Kinase 40 U/L (30-135)
[2022-10-07 20:32] LABS: HCG,Quantitative 11384 mIU/ml (0-5.42)
[2022-10-07 20:35] LABS: Troponin I < 0.01 ng/ml (0.00-0.034)
--- NOTE | 2022-10-07 20:42 | US_ITS ---
PROCEDURE INFORMATION: Exam: US After First Trimester, Transabdominal Exam date and time: 10/07/2022 8:44 PM Age: 22 years old Clinical indication: Other: Pelvic pain; Gestational age or lmp: 18 week 4 days; ; Additional info: Suprapubic abd pain TECHNIQUE: Imaging protocol: Real-time transabdominal obstetrical ultrasound of the maternal pelvis and a second or third trimester with image documentation. COMPARISON: CT ABDOMEN PELVIS WO CON 10/27/2021 10:56 AM FINDINGS: Gestation: Single live intrauterine gestation. heart rate: heart tones measure 144 bpm. presentation: Breech presentation. Placenta: Placenta posterior, without previa. Grade 1. Amniotic fluid: Amniotic fluid is normal for gestational age. ANATOMY: Limited anatomy was performed. BIOMETRY: Gestational age (AUA): Estimated gestational age 18 weeks 6 days. Estimated due date (AUA): March 04, 2023 Estimated weight: 0 lb 9 oz Biparietal diameter (BPD): BPD measures 4.3 cm. Head circumference (HC): Head circumference measures 15.2 cm. Abdominal circumference (AC): Abdominal circumference measures 13.3 cm. Femur length (FL): Femur length measures 2.9 cm. MATERNAL: Uterus: Unremarkable. Cervix: Cervical length measures 2.97 cm. Right ovary/adnexa: Obscured by lack of adequate acoustic window. Left ovary/adnexa: Obscured by lack of adequate acoustic window. Intraperitoneal space: No intraperitoneal free fluid. IMPRESSION: Single live intrauterine gestation with estimated gestational age 18 weeks 6 days.
[2022-10-07 20:44] LABS: D-Dimer 1.02 ug/mL (0.0-0.5)
--- NOTE | 2022-10-07 20:48 | PC.NURSE ---
to rad. order changed via and tech convo
[2022-10-07 21:30] VITALS: BP 126/74; PULSE 89; RESP 20; O2SAT 98
--- NOTE | 2022-10-07 21:34 | PC.NURSE ---
Patient return to room via and patricio. speaking with US tech. Report obtained. Patient reconnected to IVF's and instructed a urine specimen is still needed. Ice chips provided.
[2022-10-07 22:00] VITALS: BP 125/76; PULSE 83; RESP 18; O2SAT 100
[2022-10-07 22:06] LABS: Microscopic, Urine URINE MICROSCOPIC (MICROSCOPIC)
[2022-10-07 22:08] LABS: Appearance,Urine SL CLOUDY (Clear); Bilirubin,Urine Negative (Negative); Blood, Urine Negative (Negative); Color,Urine YELLOW (Yellow); Glucose,Urine (UA) Negative (Negative); Ketones,Urine TRACE (Negative); Leukocyte Esterase,Urine 1+ (Negative); Nitrate,Urine Negative (Negative); Protein,Urine Negative (Negative); Specific Gravity, Urine 1.025 (1.005-1.030)
[2022-10-07 22:20] LABS: Barbiturates Screen,Urine Negative ng/ml (<200); Benzodiazepines Screen,Urine Negative ng/ml (<200)
[2022-10-07 22:21] LABS: Amphetamine/Metha Screen,Urine Negative ng/ml (<1000)
[2022-10-07 22:22] LABS: Cannabinoid Screen,Urine Negative ng/ml (<50); Cocaine Screen,Urine Negative ng/ml (<300)
[2022-10-07 22:23] LABS: Methadone Screen,Urine Negative ng/ml (<300); Opiate Screen,Urine Negative ng/ml (<300)
[2022-10-07 22:24] LABS: Phencyclidine Screen,Urine Negative ng/ml (<25)
[2022-10-07 22:30] VITALS: BP 124/79; PULSE 87; RESP 20; O2SAT 99
[2022-10-07 22:40] LABS: Bacteria,Urine 1+ /lpf
--- NOTE | 2022-10-07 22:54 | PC.NURSE ---
call placed to [facility] for on-call for dr mejia by elizabeth,emt-p
[2022-10-07 23:00] VITALS: BP 130/88; PULSE 87; RESP 18; O2SAT 99
[2022-10-07 23:30] VITALS: BP 123/79; PULSE 90; RESP 20; O2SAT 100
--- NOTE | 2022-10-07 23:42 | PC.NURSE ---
Call placed to [facility] a second time. Spoke with Romulo at the call center. He advised he typed the number incorrectly and that the Mason Tender MD had no electric or power at her home. Stated he would contact her and have her call us back as soon as possible. TAHIR
--- NOTE | 2022-10-07 23:45 | PC.NURSE ---
Dr. Fuentes, OB physician combination man at [facility], returned the page and is speaking with Dr. Prieto at this time.
[2022-10-08] VITALS: BP 123/77; PULSE 85; RESP 18; O2SAT 99
--- NOTE | 2022-10-08 00:03 | PC.NURSE ---
rounded on pt. no new complaints at this time. pain med and antibiotic given.
[2022-10-08 00:20] VITALS: BP 123/77; PULSE 85; RESP 16; TEMP 36.9
== END 2022-10-08 00:27 | disposition home or self-care (01) ==
PROVIDERS: Emergency Provider Emergency Medicine; PCP Family Medicine
DX: O23.32 Infections of other parts of urinary tract in pregnancy, second trimester (principal); O99.412 Diseases of the circulatory system complicating pregnancy, second trimester; R07.89 Other chest pain; Z3A.19 19 weeks gestation of pregnancy; R00.0 Tachycardia, unspecified
CPT/HCPCS: 71045; 76805; 80048; 80076; 80305; 81001; 82150; 82550; 83690; 84484; 84702; 85025; 85378; 87086; 93005; 96361; 96365; 96375; 99285; J0696

== ENCOUNTER 2023-01-12 23:34 | Outpatient (CLI) | payer OTHER, SELFPAY ==
[2023-01-12 23:43] VITALS: BMI 36.0
[2023-01-12 23:55] LABS: Appearance,Urine CLEAR (Clear); Bilirubin,Urine Negative (Negative); Blood, Urine TRACE-I (Negative); Color,Urine YELLOW (Yellow); Glucose,Urine (UA) Negative (Negative); Ketones,Urine Negative (Negative); Leukocyte Esterase,Urine 1+ (Negative); Microscopic, Urine URINE MICROSCOPIC (MICROSCOPIC); Nitrate,Urine Negative (Negative); Protein,Urine Negative (Negative); Specific Gravity, Urine 1.015 (1.005-1.030); Urobilinogen,Urine 0.2 EU/dl (0.2)
[2023-01-13 00:10] LABS: Bacteria,Urine Trace /lpf; RBC,Urine Occasional #/hpf (0-3)
[2023-01-13 00:40] VITALS: BP 135/77; PULSE 113; RESP 17; TEMP 36.8; O2SAT 97; BMI 35.8
[2023-01-13 00:56] LABS: Amphetamine/Metha Screen,Urine Negative ng/ml (<1000); Benzodiazepines Screen,Urine Negative ng/ml (<200)
[2023-01-13 00:57] LABS: Barbiturates Screen,Urine Negative ng/ml (<200)
[2023-01-13 00:58] LABS: Cannabinoid Screen,Urine Negative ng/ml (<50); Methadone Screen,Urine Negative ng/ml (<300)
[2023-01-13 00:59] LABS: Cocaine Screen,Urine Negative ng/ml (<300)
[2023-01-13 01:00] LABS: Opiate Screen,Urine Negative ng/ml (<300)
[2023-01-13 01:01] LABS: Phencyclidine Screen,Urine Negative ng/ml (<25)
== END 2023-01-13 02:02 | disposition home or self-care (01) ==
LOC: OBOUT 23:36 → OB 23:37
PROVIDERS: PCP Obstetrics & Gynecology; Visit Provider Obstetrics & Gynecology
DX: O47.03 False labor before 37 completed weeks of gestation, third trimester (principal); Z3A.32 32 weeks gestation of pregnancy; M54.50 Low back pain, unspecified
CPT/HCPCS: 59025; 80305; 81001; 87086; 96365; G0463